=== PATIENT | male | born 1965 | race Caucasian/White ===

== ENCOUNTER → 2017-10-04 | Outpatient (CLI) | payer BC ==
--- NOTE | 2017-10-05 07:42 | Diagnostic Imaging Report ---
EXAMINATION: MRI of the cervical spine without contrast HISTORY: Neck pain radiating to the bilateral upper extremities COMPARISON: None available TECHNIQUE: Sagittal T1, T2, STIR; axial T2, gradient echo. FINDINGS: Curvature: Mild reversal of the cervical lordosis from C3 to C7 Vertebrae: No evidence of neoplasm, infection, or fracture. Chronic endplate degenerative changes from C5 to C7 Foramen magnum: No mass, Chiari malformation, or basilar invagination. Spinal Cord: Normal size and signal intensity. Soft Tissues: Unremarkable. Degenerative changes: C1-C2: Unremarkable. C2-C3: Bilateral facet process. Moderate left foraminal stenosis. C3-C4: Disc osteophyte complex formation, bilateral uncovertebral and facet arthrosis. Moderate spinal canal, mild right and moderate left foraminal stenoses. C4-C5: Disc osteophyte complex formation, bilateral uncovertebral and facet arthrosis. Moderate spinal canal stenosis. Moderate right and severe left foraminal stenosis. Compression upon the exiting left C5 nerve root cannot be excluded C5-C6: Disc osteophyte compresses formation, bilateral uncovertebral facet arthrosis. Severe spinal canal and bilateral foraminal stenoses. Compression upon the exiting C6 roots cannot be excluded C6-C7: Disc osteophyte complex formation, bilateral uncovertebral and facet arthrosis. Severe spinal canal and bilateral foraminal stenoses. Compression upon the exiting C7 nerve root cannot be excluded. C7-T1: Bilateral facet arthrosis without significant stenoses IMPRESSION: 1. Severe degenerative spinal canal and bilateral foraminal stenosis at C5-C6 and C6-C7. 2. Severe degenerative foraminal stenosis on the left at C4-C5 and moderate on the left at C2-C3 and C3-C4. 3. Moderate degenerative spinal canal stenosis at C3-C4 and C4-C5. Signed by: Dr. Yen Weathers M.D. on 10/05/2017 7:38 AM
== END ==
LOC: MRI 16:19
PROVIDERS: ATTEND Specialist
DX: M54.12 Radiculopathy, cervical region (principal)
CPT/HCPCS: 72141